=== PATIENT | female | born 1995 | race African-American/Black ===

== ENCOUNTER 2019-01-01 04:24 | Emergency (ER) | payer SELFPAY ==
[~2019-01-01] VITALS: Ht 152.4 cm; Wt 47.7 kg
[~2019-01-01 04:24] MED LIST: CEPH-443 PO; IBUP-1542 PO; NEOM1PAC TP
[2019-01-01 04:29] VITALS: BP 166/100; PULSE 84; RESP 18; Ht 152.4 cm; Wt 47.7 kg
[2019-01-01] MEDS ORDERED: ONDANSETRON (ODT) 4 MG TAB ODT STA (04:45)
[2019-01-01] MEDS ORDERED: DIPHTH/TET/ACEL PERTUSS (ADULT) 0.5 ML VIAL IM* ONE (05:00)
[2019-01-01] MEDS ORDERED: BACITRACIN 0.5%/ZINC 28.35 GM OINT TOP ONE ×2 (05:00→05:30)
[2019-01-01] MEDS ORDERED: HYDROCODONE/APAP (5/325) TAB PO ONE ×2 (05:00→05:30)
[2019-01-01] MEDS ORDERED: LIDOCAINE 1% (MDV) 20 ML INJ SC ONE (06:00)
== END 2019-01-01 06:38 | disposition home or self-care (01) ==
LOC: FTE 04:24
DX: S01.511A Laceration without foreign body of lip, initial encounter (principal); S16.1XXA Strain of muscle, fascia and tendon at neck level, initial encounter; S40.012A Contusion of left shoulder, initial encounter; V00.831A Fall from motorized mobility scooter, initial encounter; Z23 Encounter for immunization
CPT/HCPCS: 70450; 70486; 72125; 73030; 81025; 90471; 90715